=== PATIENT | female | born 1985 | race Caucasian/White ===

== ENCOUNTER 2024-01-20 00:21 | Emergency (ER) | payer OTHER, SELFPAY ==
[2024-01-20 00:27] VITALS: BP 113/76; PULSE 116; RESP 18; TEMP 36.7; O2SAT 100; BMI 19.9
--- NOTE | 2024-01-20 00:56 | W.ED.ABDPA2 ---
HPI - Abdominal Pain General: Chief Complaint: Abdominal Pain Stated Complaint: Lower back pain Time Seen by Provider: 01/20/24 00:25 History of Present Illness: 38-year-old female with a history of kidney stones who presents emergency room with flank pain. She is 14 weeks . She was seen at [facility] yesterday and sent home on some antibiotics for possible UTI. Pain is much worse today. No fevers. No vaginal bleeding. No vaginal discharge. Related Data Previous Rx's Medication Instructions Recorded amoxicillin 500 mg capsule 500 mg PO Q12H 10 days #20 caps 04/11/22 mineral oil-hydrophil petrolat 1 applic topical QID PRN dry skin 04/11/22 topical ointment (Aquaphor topical #50 grams ointment) prednisone 10 mg tablet See Rx Instructions PO DAILY #62 04/11/22 tabs clobetasol 0.05 % topical ointment 1 applic topical BID 2 weeks #60 04/30/22 grams hydrocodone 5 mg-acetaminophen 325 1 tab PO Q8H PRN pain #14 tabs 01/20/24 mg tablet ondansetron 8 mg disintegrating 8 mg PO Q6H #14 tabs 01/20/24 tablet Allergies Allergy/AdvReac Type Severity Reaction Status Date / Time No Known Allergies Allergy Unverified 04/11/22 15:12 Review of Systems Narrative: Constitutional symptoms: Negative except as documented in HPI. Skin symptoms: Negative except as documented in HPI. Eye symptoms: Negative except as documented in HPI. ENMT symptoms: Negative except as documented in HPI. Respiratory symptoms: Negative except as documented in HPI. Cardiovascular symptoms: Negative except as documented in HPI. Gastrointestinal symptoms: Negative except as documented in HPI. Genitourinary symptoms: Negative except as documented in HPI. Musculoskeletal symptoms: Negative except as documented in HPI. Neurologic symptoms: Negative except as documented in HPI. Psychiatric symptoms: Negative except as documented in HPI. Endocrine symptoms: Negative except as documented in HPI. Physical Exam Narrative: EXAM NARRATIVE: General: Alert, no acute distress. Skin: Warm, dry. Head: Normocephalic, atraumatic. Neck: Supple, trachea midline. Eye: Extraocular movements are intact. Ears, nose, mouth and throat: mucosa moist. Cardiovascular: Regular, Normal peripheral perfusion. Respiratory: Lungs are clear to auscultation, respirations are non-labored, breath sounds are equal, Symmetrical chest wall expansion. Gastrointestinal: Soft, flank pain, Non distended Musculoskeletal: Normal ROM, no deformity. Neurological: Alert and oriented, No focal neurological deficit observed. Psychiatric: Cooperative, appropriate mood & affect. Course Vital Signs: Vital signs: Vital Signs Temperature 98.0 F 01/20/24 00:27 Pulse Rate 75 01/20/24 02:55 Respiratory Rate 16 01/20/24 02:55 Blood Pressure 108/78 01/20/24 02:55 Pulse Oximetry 97 01/20/24 02:55 Oxygen Delivery Me thod Room Air 01/20/24 00:27 MDM - Abdominal Pain Medical Decision Making Medical decision making: Differential diagnosis including but not limited to and based on the above HPI, review of systems and physical exam: Ureterolithiasis. Urinary tract infection. Appendicitis. Cholecystis. Musculoskeletal / back pain. Pyelonephritis Orders placed to evaluate differential diagnosis based on the above differential, HPI and physical exam Lab Review: Laboratory results were reviewed and interpreted by myself the emergency room physician. Mild leukocytosis. Mild anemia. BUN and creatinine are slightly elevated at 19 and 1. Urine has some reds. No signs of infection. Ultrasound of the abdomen shows a probable 9 mm pelvic stone. Preliminary report. Final report reports this is a intrarenal stone. There is some hydronephrosis however. So she may have passed a stone. Got away she needs follow-up with urology I reviewed the patient's medical record. Reexamination: Patient remained stable. No increased work of breathing. No altered mental status. No focal motor deficits. Assessment and plan: Kidney stone Dehydration ? Premium?IV fluids. - Discharged home - Discussed plan with patient. Answered any questions. - Evaluation and treatment of this problem were appropriate in the emergency setting. Lab Data 01/20/24 01:00 01/20/24 01:00 Labs/Radiology: Radiology Impressions Abdomen Ultrasound 01/20/24 00:57 IMPRESSION: 1. Mild to moderate right hydronephrosis, see additional details and discussion above. 2. 9 mm right intrarenal calculus. 3. No cholelithiasis or biliary tree dilation. 4. Suspected gallbladder wall polyp, details above. 5. Other details/findings discussed above. Laboratory Results WBC 11.75 10^3/uL (3.29-11.43) H 01/20/24 01:00 RBC 3.25 10^6/uL (3.85-5.65) L 01/20/24 01:00 Hgb 9.60 g/dL (11.27-16.99) L 01/20/24 01:00 Hct 29.4 % (36-47) L 01/20/24 01:00 MCV 90.5 fl (85-98) 01/20/24 01:00 MCH 29.5 pg (27-33) 01/20/24 01:00 MCHC 32.7 g/dL (30-55) 01/20/24 01:00 RDW 12.7 % (12.1-15.1) 01/20/24 01:00 Plt Count 227 10^3/cmm (157-399) 01/20/24 01:00 MPV 10.1 fL (7.4-10.4) 01/20/24 01:00 Neut % (Auto) 78.5 % 01/20/24 01:00 Lymph % (Auto) 13.7 % 01/20/24 01:00 [place] % (Auto) 6.1 % 01/20/24 01:00 Eos % (Auto) 1.2 % 01/20/24 01:00 Baso % (Auto) 0.2 % 01/20/24 01:00 Neut # (Auto) 9.22 10^3/uL (1.8-7.7) H 01/20/24 01:00 Lymph # (Auto) 1.6 10^3/uL (0.8-4.8) 01/20/24 01:00 [place] # (Auto) 0.7 10^3/uL (0.2-0.9) 01/20/24 01:00 Eos # (Auto) 0.1 10^3/uL (0.0-0.8) 01/20/24 01:00 Baso # (Auto) 0.0 10^3/uL (0.0-0.1) 01/20/24 01:00 Nucleated RBC % (auto) 0 % 01/20/24 01:00 Nucleated RBCs # 0.0 /100WBC 01/20/24 01:00 Sodium 134 mmol/L (136-145) L 01/20/24 01:00 Potassium 3.4 mmol/L (3.5-5.1) L 01/20/24 01:00 Chloride 102 mmol/L (98-107) 01/20/24 01:00 Carbon Dioxide 21 mmol/L (22-29) L 01/20/24 01:00 Anion Gap 14.4 (5-19) 01/20/24 01:00 BUN 19 mg/dL (6-20) 01/20/24 01:00 Creatinine 1.0 mg/dL (0.5-0.9) H 01/20/24 01:00 GFR Calculation 62.7 mL/min (90-130) L 01/20/24 01:00 Glucose 74 mg/dL (65-115) 01/20/24 01:00 Calculated Osmolality 279 mOsm/kg (285-295) L 01/20/24 01:00 Calcium 9.3 mg/dL (8.5-10.5) 01/20/24 01:00 Total Bilirubin 0.2 mg/dL (0.15-1.2) 01/20/24 01:00 AST 22 U/L (0-32) 01/20/24 01:00 ALT 14 U/L (0-33) 01/20/24 01:00 Alkaline Phosphatase 63 U/L (35-105) 01/20/24 01:00 Total Protein 6.8 g/dL (6.6-8.7) 01/20/24 01:00 Albumin 4.1 g/dL (3.5-5.2) 01/20/24 01:00 Globulin 2.7 g/dL (1.3-4.6) 01/20/24 01:00 Ser , Semi-Qnt 84751.00 mIU/mL 01/20/24 01:00 Urine Color Yellow (Yellow) 01/20/24 00:55 Urine Appearance Clear (CLEAR) 01/20/24 00:55 Urine pH 5.5 (5-7) 01/20/24 00:55 Ur Specific [place] 1.007 (1.005-1.030) 01/20/24 00:55 Urine Protein Negative (Negative) 01/20/24 00:55 Urine Glucose (UA) Negative (Normal) 01/20/24 00:55 Urine Ketones Negative (Negative) 01/20/24 00:55 Urine Blood 2+ (Negative) A 01/20/24 00:55 Urine Nitrate Negative (Negative) 01/20/24 00:55 Urine Bilirubin Negative (Negative) 01/20/24 00:55 Urine Urobilinogen 0.2 mg/dL (Negative) 01/20/24 00:55 Ur Leukocyte Esterase Trace (Negative) A 01/20/24 00:55 Urine RBC 0-2 /hpf (0-2) 01/20/24 00:55 Urine WBC 0-5 /hpf (0-5) 01/20/24 00:55 Ur Squamous Epith Cells 0-5 /hpf (0-5) 01/20/24 00:55 Amorphous Sediment Not Reportable 01/20/24 00:55 Urine Bacteria None seen /hpf (NONE) 01/20/24 00:55 Hyaline Casts 3.30 /lpf 01/20/24 00:55 Urine Opiates Screen Negative ng/mL (Negative) 01/20/24 00:55 Ur Barbiturates Screen Negative ng/mL (Negative) 01/20/24 00:55 Ur Phencyclidine Scrn Negative ng/mL (Negative) 01/20/24 00:55 Ur Amphetamines Screen Negative ng/mL (Negative) 01/20/24 00:55 U Benzodiazepines Scrn Negative ng/mL (Negative) 01/20/24 00:55 Urine Cocaine Screen Negative ng/mL (Negative) 01/20/24 00:55 U Marijuana (THC) Screen Positive ng/mL (Negative) H 01/20/24 00:55 All radiology interpretation(s) finalized by discharge Discharge Plan Discharge Patient Disposition: Home Clinical Impression: Ureterolithiasis, Condition: Stable Prescriptions: New hydrocodone-acetaminophen 5-325 mg tablet 1 tab PO Q8H PRN (Reason: pain) Qty: 14 0RF Rx Instructions: Take 1/2 to 1 tab every 8 hours as needed for pain ondansetron 8 mg tablet,disintegrating 8 mg PO Q6H Qty: 14 0RF Rx Instructions: Take 1/2-1 tab every 6 hours as needed for nausea and vomiting No Action amoxicillin 500 mg capsule 500 mg PO Q12H 10 Days Qty: 20 0RF prednisone 10 mg tablet See Rx Instructions PO DAILY Qty: 62 0RF Rx Instructions: take 5 tab daily x 4 days,4 tabs daily x 4 days,3 tabs daily x 4 days,2 tabs daily x 4 days,1 tab daily x 4 days, 0.5 tab daily x 4 days. Aquaphor Ointment 1 applic topical QID PRN (Reason: dry skin) Qty: 50 1RF clobetasol 0.05 % ointment 1 applic topical BID 14 Days Qty: 60 1RF Rx Instructions: do not use on face or on folds of skin Discharge Orders: Discharge ED (Routine); Ordered 01/20/24 Ordered By: Yadi Burnett Referrals: SH[facility]A [Other] Discharge Diet: Usual diet Discharge Activity: Increase activity as tolerated Patient Instructions: Kidney Stones (ED), at 15 to 18 Weeks (ED), at 11 to 14 Weeks (ED) Activity Restrictions/Additional Instructions: Call for appointment with urology. If fever (temp >100.4) develops return to the emergency room immediately, as this is an emergency. Take nausea medication prior to taking pain medications. Thank you for choosing [facility] for your healthcare needs today. Please realize this is an emergency room and that we are providing you with a medical screening exam and this may not be complete and all inclusive of all the testing and or work up that you may need to determine your ailment or severity of your illness. You have been screened and evaluated and felt safe for discharge. Health conditions do change or evolve sometimes and as such it is important that you follow up with your Primary Doctor to be re checked, 3-5 days is a general good time frame for follow up. You are always welcome to return to the ED for re assessment if your symptoms are worsening or you have new concerns Coding Level of Care Code ED [facility] for [facility] [place]
--- NOTE | 2024-01-20 00:57 | USR_ITS ---
PROCEDURE INFORMATION: Exam: US Abdomen Complete Exam date and time: 01/20/2024 1:07 AM Age: 38 years old Clinical indication: Abdominal pain; Flank; Right; ; Prior surgery; Surgery date: 6+ months; Surgery type: History of nephrolithiasis S/P stone retrieval, lithotripsy 2015; Additional info: , concern for kidney stones TECHNIQUE: Imaging protocol: Real-time ultrasound of the abdomen with image documentation. Complete exam. COMPARISON: No relevant prior studies available. FINDINGS: Liver: Unremarkable liver, no focal abnormality. The main portal vein appears patent, with hepatopetal flow. Gallbladder: The gallbladder appears partially contracted. 5 mm apparent gallbladder wall polyp. No cholelithiasis. No gallbladder wall thickening or pericholecystic fluid. Biliary ducts: No biliary dilation, common duct measures 4.0 mm. Pancreas: Visible pancreas unremarkable. Right kidney: The right kidney measures 12.7 cm in length. A 9 mm shadowing stone is seen within the right kidney. There appears to be mild to moderate right hydronephrosis. Possible etiologies would include a right ureteral calculus, pyelonephritis, and hydronephrosis of . Please correlate clinically. No definite perinephric fluid. Left kidney: The left kidney measures 11.6 cm in length. Images of the left kidney show no hydronephrosis. No definite calculus visible in the left kidney. No definite perinephric fluid. Spleen: The spleen appears unremarkable, length of 8.4 cm. Urinary bladder: Prevoid urinary bladder volume was 220 cc. Postvoid urinary bladder volume was 23 cc. The left ureteral jet was identified. The right ureteral jet could not be identified at this time. Images of the urinary bladder otherwise appear essentially unremarkable. Intraperitoneal space: No visible ascites. Aorta: Visualized portions of the aorta appear unremarkable. Inferior vena cava: Visualized portions of the IVC appear unremarkable. US/US abdomen complete* [id number] IMPRESSION: 1. Mild to moderate right hydronephrosis, see additional details and discussion above. 2. 9 mm right intrarenal calculus. 3. No cholelithiasis or biliary tree dilation. 4. Suspected gallbladder wall polyp, details above. 5. Other details/findings discussed above.
[2024-01-20 01:00] LABS: Bilirubin Urine Negative (Negative); Blood Urine 2+ (Negative); Glucose Urine UA Negative (Normal); Ketones Urine Negative (Negative); Leukocyte Esterase Urine Trace (Negative); Nitrate Urine Negative (Negative); Protein Urine Negative (Negative); Specific Gravity, Urine 1.007 (1.005-1.030); Urine Appearance Clear (CLEAR); Urine Color Yellow (Yellow); Urobilinogen Urine 0.2 mg/dL (Negative); pH Urine 5.5 (5-7)
[2024-01-20 01:04] LABS: Basophils % 0.2 %; Eosinophils # 0.1 10^3/uL (0.0-0.8); Eosinophils % 1.2 %; Hematocrit 29.4 % (36-47); Lymphocytes # 1.6 10^3/uL (0.8-4.8); Lymphocytes % 13.7 %; Mean Corpuscular HGB Conc 32.7 g/dL (30-55); Mean Corpuscular Hemoglobin 29.5 pg (27-33); Mean Corpuscular Volume 90.5 fl (85-98); Mean Platelet Volume 10.1 fL (7.4-10.4); Monocytes # 0.7 10^3/uL (0.2-0.9); Monocytes % 6.1 %; Neutrophils # 9.22 10^3/uL (1.8-7.7); Neutrophils % 78.5 %; Nucleated Red Blood Cells % 0 %; Platelet Count 227 10^3/cmm (157-399); Red Blood Count 3.25 10^6/uL (3.85-5.65); Red Cell Distribution Width 12.7 % (12.1-15.1); White Blood Count 11.75 10^3/uL (3.29-11.43)
[2024-01-20 01:04] LABS: Bacteria Urine None Seen /hpf; RBC Urine 0-2 /hpf (0-2); Squamous Epithelial Cell Urine 0-5 /hpf (0-5); WBC Urine 0-5 /hpf (0-5)
[2024-01-20 01:07] LABS: Amphetamines Screen Urine Negative (Negative); Barbiturates Screen Urine Negative (Negative); Benzodiazepines Screen Urine Negative (Negative); Cocaine Screen Urine Negative (Negative); Opiate Screen Urine Negative (Negative); PCP Screen Urine Negative (Negative); THC Screen Urine Positive (Negative)
[2024-01-20] MEDS: HYDROcodone-acetaminophen 10-325 mg Tablet 1 TAB PO (01:11)
[2024-01-20] MEDS: ondansetron 4 MG Tablet PO (01:11)
[2024-01-20 01:34] LABS: Alanine Aminotransferase 14 U/L (0-33); Albumin Level 4.1 g/dL (3.5-5.2); Alkaline Phosphatase 63 U/L (35-105); Anion Gap 14.4 (5-19); Aspartate Amino Transferase 22 U/L (0-32); Blood Urea Nitrogen 19 mg/dL (6-20); Calcium 9.3 mg/dL (8.5-10.5); Carbon Dioxide 21 mmol/L (22-29); Chloride 102 mmol/L (98-107); Creatinine Clr Calc Pharmacy 66.1365; Globulin 2.7 g/dL (1.3-4.6); Glomerular Filtration Rate 62.7 mL/min (90-130); Glucose 74 mg/dL (65-115); Osmolality Calculated 279 mOsm/kg (285-295); Potassium 3.4 mmol/L (3.5-5.1); Sodium 134 mmol/L (136-145); Total Bilirubin 0.2 mg/dL (0.15-1.2); Total Protein 6.8 g/dL (6.6-8.7)
--- NOTE | 2024-01-20 02:08 | PC.NURSE ---
zofran 4mg and 2 norco 5/325 sent home with pt
[2024-01-20] MEDS: sodium chloride 0.9% 1,000 ML 999 ML IV (02:09)
[2024-01-20 02:55] VITALS: BP 108/78; PULSE 75; RESP 16; O2SAT 97
== END 2024-01-20 02:57 | disposition home or self-care (01) ==
PROVIDERS: Emergency Provider Emergency Medicine
DX: O26.892 Other specified pregnancy related conditions, second trimester (principal); N13.2 Hydronephrosis with renal and ureteral calculous obstruction; Z3A.14 14 weeks gestation of pregnancy; Z87.442 Personal history of urinary calculi
CPT/HCPCS: 76700; 80053; 80306; 81001; 84702; 85025; 96360; 99284; J7030; Q0162